=== PATIENT | female | born 1970 | race Caucasian/White ===

== ENCOUNTER 2023-02-08 16:59 | Outpatient (CLI) | payer BC, SELFPAY ==
--- NOTE | 2023-02-08 17:15 | CRLHL7_ITS ---
For Patients: As a result of the Cures Act, medical imaging exams and procedure reports are released immediately into your electronic medical record. You may view this report before your referring provider. If you have questions, please contact your health care provider. BILATERAL SCREENING MAMMOGRAM WITH COMPUTER-AIDED DETECTION AND TOMOSYNTHESIS TECHNIQUE: CC and MLO views were obtained. These mammographic images have been obtained using full-field digital technique. These mammographic images were interpreted with the benefit of computer-aided detection. Breast Tomosynthesis was used in this interpretation. COMPARISON FILM: 03/04/21, 02/25/20, 01/30/19. FINDINGS: There are scattered areas of fibroglandular density IMPRESSION: There is no radiographic evidence for malignancy. ASSESSMENT: BI-RADS Category 1: Negative RECOMMENDATION: Routine screening mammogram in 1 year. A lay language report of this examination will be provided to the patient. Hunter Pressley M.D. Diagnostic Radiologist [email or web address] Transcribed: 6:41 p.mJamie borges/Dictated by: Hunter Pressley MD @ 02/09/2023 12:48:00 PM (Electronically Signed)
== END 2023-02-08 17:00 | disposition home or self-care (01) ==
LOC: MAMMO 16:59
PROVIDERS: PCP Family Medicine; Visit Provider Registered Nurse
DX: Z12.31 Encounter for screening mammogram for malignant neoplasm of breast (principal)
CPT/HCPCS: 77063; 77067

== ENCOUNTER 2024-02-22 09:16 | Outpatient (CLI) | payer BC, SELFPAY ==
--- NOTE | 2024-02-22 09:15 | CRLHL7_ITS ---
For Patients: As a result of the Cures Act, medical imaging exams and procedure reports are released immediately into your electronic medical record. You may view this report before your referring provider. If you have questions, please contact your health care provider. BILATERAL SCREENING MAMMOGRAM WITH COMPUTER-AIDED DETECTION AND TOMOSYNTHESIS TECHNIQUE: CC and MLO views were obtained. These mammographic images have been obtained using full-field digital technique. These mammographic images were interpreted with the benefit of computer-aided detection. Breast Tomosynthesis was used in this interpretation. COMPARISON FILM: 02/08/23, 03/04/21, 02/25/20. FINDINGS: There are scattered areas of fibroglandular density IMPRESSION: There is no radiographic evidence for malignancy. ASSESSMENT: BI-RADS Category 1: Negative RECOMMENDATION: Routine screening mammogram in 1 year. A lay language report of this examination will be provided to the patient. Hunter Pressley M.D. Diagnostic Radiologist [email or web address] Transcribed: 4:45 p.mJamie borges/Dictated by: Hunter Pressley MD @ 02/22/2024 10:00:00 AM (Electronically Signed)
== END 2024-02-22 09:17 | disposition home or self-care (01) ==
LOC: MAMMO 09:17
PROVIDERS: PCP Nurse Practitioner Family; Visit Provider Registered Nurse
DX: Z12.31 Encounter for screening mammogram for malignant neoplasm of breast (principal)
CPT/HCPCS: 77063; 77067

== ENCOUNTER 2024-02-22 10:15 | Outpatient (CLI) | payer BC, SELFPAY | END 2024-02-22 10:16 | disposition home or self-care (01) | LOC: NFLDREF 10:16 | PROVIDERS: PCP Nurse Practitioner Family; Visit Provider Registered Nurse | DX: R63.5 Abnormal weight gain (principal) | CPT/HCPCS: 84443 ==

== ENCOUNTER 2024-02-24 13:50 | Outpatient (CLI) | payer BC, SELFPAY ==
--- NOTE | 2024-02-24 14:00 | CRLHL7_ITS ---
For Patients: As a result of the Century Cures Act, medical imaging exams and procedure reports are released immediately into your electronic medical record. You may view this report before your referring provider. If you have questions, please contact your health care provider. CLINICAL HISTORY: IUD strings not found TECHNIQUE: 2D alvarez scale and color Doppler images were acquired of the pelvis using a transvaginal approach. FINDINGS: Hyperechoic foci in the myometrium measure up to 4 millimeters likely represent small calcifications or hypoechoic fibroids. A small hypoechoic intramural fibroid is present within the left side of the uterus measuring 6 x 5 x 6 millimeters. The uterus measures 7.2 x 4.2 x 3.9 cm. Normal position of an IUD within the endometrial canal. The endometrium is not thickened. The left ovary measures 3.1 x 2.1 x 1.8 cm in size and the right ovary measures 2.6 x 1.1 x 1.4 cm. The ovaries demonstrate normal arterial and venous blood flow on color Doppler analysis. There are no suspicious fluid collections within the cul-de-sac. Simple left ovarian cyst is noted measuring 1.8 cm. IMPRESSION: Normal position of an IUD within the endometrial canal. Dictated by Hunter Pressley MD @ 02/25/2024 7:54:51 AM (Electronically Signed)
== END 2024-02-24 13:51 | disposition home or self-care (01) ==
LOC: US 13:50
PROVIDERS: PCP Nurse Practitioner Family; Visit Provider Registered Nurse
DX: T83.32XA Displacement of intrauterine contraceptive device, initial encounter (principal)
CPT/HCPCS: 76830

== ENCOUNTER 2025-02-22 09:12 | Outpatient (CLI) | payer BC, SELFPAY ==
--- NOTE | 2025-02-22 09:15 | CRLHL7_ITS ---
For Patients: As a result of the Century Cures Act, medical imaging exams and procedure reports are released immediately into your electronic medical record. You may view this report before your referring provider. If you have questions, please contact your health care provider. INDICATION: BILATERAL SCREENING MAMMOGRAM, ASYMPTOMATIC 54 Y/O FEMALE COMPARISON: 02/22/2024, 02/08/2023, 03/04/2021 TECHNIQUE: Digital mammogram in CC and MLO projections including computer-aided detection (CAD) and tomosynthesis. BREAST COMPOSITION: There are scattered areas of fibroglandular density. FINDINGS: No suspicious findings. ASSESSMENT: BI-RADS 1 Negative RECOMMENDATION: Annual screening mammogram. A lay language report of this examination will be provided to the patient. Dictated by: Hunter Pressley MD @ 02/22/2025 11:11:08 (Electronically Signed)
== END 2025-02-22 09:13 | disposition home or self-care (01) ==
LOC: MAMMO 09:12
PROVIDERS: PCP Nurse Practitioner Family; Visit Provider Registered Nurse
DX: Z12.31 Encounter for screening mammogram for malignant neoplasm of breast (principal)
CPT/HCPCS: 77063; 77067

== ENCOUNTER 2025-02-22 10:30 | Outpatient (CLI) | payer BC, SELFPAY ==
[2025-02-23 22:04] LABS: HPV Source Cervix
[2025-02-26 15:42] LABS: Pap Test Digital Imaging Done
== END 2025-02-22 10:31 | disposition home or self-care (01) ==
PROVIDERS: PCP Nurse Practitioner Family; Visit Provider Registered Nurse
DX: Z12.4 Encounter for screening for malignant neoplasm of cervix (principal)
CPT/HCPCS: 87624; 87625; 88141; 88142; 88175